=== PATIENT | male | born 1975 | race Caucasian/White ===

== ENCOUNTER 2017-02-11 09:32 | Emergency (ER) | payer OTHER ==
[~2017-02-11] VITALS: Ht 180.3 cm; Wt 98.5 kg
[2017-02-11 09:39] VITALS: TEMP 36.8; Ht 180.3 cm; Wt 98.5 kg
--- NOTE | 2017-02-11 09:56 | EMERGENCY ROOM VISIT NOTE ---
History Report prepared by [place]: Natalie Wang Under the Supervision of: Dr. Herb Maguire M.D. First contact with patient: 09:41 Chief Complaint: HYPERTENSION Stated Complaint: CHEST PAIN History of Present Illness The patient is a 41 year old male who presents to the Emergency Room with complaints of persistent hypertension that began prior to arrival. The patient states that he has a history of cauda equina syndrome. He additionally notes a history of hypertension and has been on both Amlodipine and Lisinopril for his hypertension. He notes that now he is currently on 20 mg of Lisinopril daily only, he is not currently taking Amlodipine. The patient states that recently he has been taking supplements that he has been buying on [employer] to increase his testosterone. The patient states that today while at work he became diaphoretic and short of breath and then felt like he was going to pass out. The patient states that his blood pressure was measured at 210/180 this morning. He denies any chest pain or headache. The patient states that he has had this happen to him in the past. He denies any nausea, vomiting, or diarrhea. Source of History: patient Onset: prior to arrival Position: other (global) Quality: other (hypertension) Timing: other (persistent) Associated Symptoms: + SOB, + diaphoresis, No chest pain, No diarrhea, No headache, No nausea, No vomiting Review of Systems See HPI for pertinent positives & negatives. A total of 10 systems reviewed and were otherwise negative. Past Medical & Surgical Medical Problems: (1) Hypertension Family History Diabetes mellitus FH: heart disease Hypertension Social History Smoking Status: Never Smoker Marital Status: Occupation Status: employed Current/Historical Medications Scheduled Amlodipine Besylate (Norvasc), 1 TAB PO DAILY Amphetamine-Dextroamphetamine 10MG (Adderall Xr 10MG), 10 MG PO BID Amphetamine-Dextroamphetamine 30MG (Adderall 30MG), 30 MG PO DAILY Bupropion (Wellbutrin Sr), 300 MG PO DAILY Ibuprofen ([facility]vs Ibuprofen Liquid Fill), 800 MG PO Q6H Lisinopril (Zestril), 20 MG PO DAILY Multivitamin (Multivitamin), 1 TAB PO DAILY [D-Aspartic Acid], 8 TAB PO DAILY Scheduled PRN Cyclobenzaprine Hcl (Flexeril), 5 MG PO TID PRN for Muscle Spasms Allergies Coded Allergies: Penicillins (Unverified Allergy, Unknown, ., 02/11/17) Physical Exam Vital Signs Date Time Temp Pulse Resp B/P Pulse Ox O2 Delivery O2 Flow Rate FiO2 02/11/17 12:29 71 18 169/106 96 Room Air 02/11/17 11:33 72 18 159/103 95 Room Air 02/11/17 10:43 84 16 208/118 02/11/17 10:13 84 02/11/17 10:12 85 18 181/118 02/11/17 09:39 36.8 100 18 191/105 97 Room Air Physical Exam GENERAL: Patient is in no acute distress. HEENT: No acute trauma, normocephalic atraumatic, mucous membranes moist, no nasal congestion, no scleral icterus. NECK: No stridor, no adenopathy, no meningismus, trachea is midline. LUNGS: Clear to auscultation bilaterally, no wheeze, no rhonchi, breath sounds equal. HEART: Without murmurs gallops or rubs, regular rate and rhythm. ABDOMEN: Soft, nontender, bowel sounds positive, no hernias, no peritonitis. EXTREMITIES: No cyanosis or edema, full range of motion of all the joints without pain or difficulty, no signs for acute trauma. NEUROLOGIC: No upper extremity deficits, lower extremity weakness noted consistent with cauda equine syndrome, awake and alert and Ox3. SKIN: No rash, no jaundice, no diaphoresis. Medical Decision & Procedures ER Provider Diagnostic Interpretation: X-ray results as stated below per interpretation by me and the radiologist: CHEST ONE VIEW PORTABLE CLINICAL HISTORY: Atypical chest pain and shortness of breath COMPARISON STUDY: No previous studies for comparison. FINDINGS: The cardiac and mediastinal contours are normal. There is no evidence of focal pulmonary consolidation. There is no evidence of failure. No pleural effusions are visualized.[ IMPRESSION: No active disease in the chest. Electronically signed by: Robbin Ortiz M.D. 02/11/2017 10:11 AM Dictated Date/Time: 02/11/2017 10:11 AM Laboratory Results 02/11/17 10:05 02/11/17 10:05 Test 02/11/17 10:05 Red Blood Count 5.28 M/uL (4.7-6.1) Mean Corpuscular Volume 88.1 fL (80-100) Mean Corpuscular Hemoglobin 30.3 pg (25-34) Mean Corpuscular Hemoglobin Concent 34.4 g/dl (32-36) RDW Standard Deviation 38.0 fL (36.4-46.3) RDW Coefficient of Variation 12.0 % (11.5-14.5) Mean Platelet Volume 8.8 fL (7.4-10.4) Anion Gap 8.0 mmol/L (3-11) Est Creatinine Clear Calc Drug Dose 117.4 ml/min Estimated GFR () 108.6 Estimated GFR (Non- 93.7 BUN/Creatinine Ratio 29.9 (10-20) Calcium Level 9.2 mg/dl (8.5-10.1) Magnesium Level 2.3 mg/dl (1.8-2.4) Total Bilirubin 1.0 mg/dl (0.2-1) Aspartate Amino Transf (AST/SGOT) 42 U/L (15-37) Alanine Aminotransferase (ALT/SGPT) 76 U/L (12-78) Alkaline Phosphatase 59 U/L (45-117) Troponin I < 0.015 ng/ml (0-0.045) Total Protein 7.1 gm/dl (6.4-8.2) Albumin 3.8 gm/dl (3.4-5.0) Globulin 3.3 gm/dl (2.5-4.0) Albumin/Globulin Ratio 1.2 (0.9-2) Thyroid Stimulating Hormone (TSH) 1.410 uIu/ml (0.300-4.500) Laboratory results reviewed by me. Medications Administered Medications (Trade) Dose Ordered Sig/Kelton Route Start Time Stop Time Status Last Admin Dose Admin Amlodipine Besylate (Norvasc Tab) 5 mg NOW ONCE PO 02/11/17 10:00 02/11/17 10:01 DC 02/11/17 10:13 5 MG Labetalol HCl (Normodyne IV) 20 mg NOW STAT IV 02/11/17 10:57 02/11/17 10:58 DC 02/11/17 11:15 20 MG ECG Indication: diaphoresis, SOB/dyspnea, other (hypertension) Rate (beats per minute): 88 Rhythm: normal sinus Findings: no acute ischemic change, no ectopy ED Course 0943: The patient was evaluated in room A2. A complete history and physical exam was performed. 1000: Ordered Norvasc Tab 5 mg PO. 1057: Ordered Labetalol HCl 20 mg IV. 1142: I reevaluated the patient and he is resting comfortably. 1237: I reevaluated the patient and he is asking to go home. I discussed all the exam findings with him and I discussed the treatment plan. He verbalized complete understanding and agreement. He is ready for discharge. Medical Decision The patient is a 41 year old male who presents to the ED with complaints of hypertension. Differential diagnoses considered include medication induced hypertension, stress or pain induced hypertension, electrolyte imbalance, anemia , cardiac ischemia, thyroid disorder. There is no leukocytosis or worrisome anemia. No significant electrolyte abnormality, kidney failure, hepatitis. The patient appears to be in a euthyroid state. EKG shows a normal sinus rhythm, no acute ischemia. Cardiac enzyme testing times one is not suggestive of acute cardiac injury. Chest x- ray shows no mediastinal widening, pneumonia or pneumothorax. The patient was given oral Norvasc, he received IV labetalol. His blood pressure is somewhat more reasonable. The patient states that he does not want to stay in the emergency room anymore. He thinks some of his high blood pressure is from anxiety and the fact that he is just in the ER. He is not homicidal or suicidal but he does feel stressed. He is going to follow with his doctor's office. He asked for information for a back surgeon, this was provided. He is being started on Norvasc in addition to his lisinopril. He has used Norvasc in the past with success. I've advised a good follow-up this upcoming week with his doctor's office. Impression Primary Impression: Hypertension Scribe Attestation The scribe's documentation has been prepared under my direction and personally reviewed by me in its entirety. I confirm that the note above accurately reflects all work, treatment, procedures, and medical decision making performed by me. Departure Information Dispostion Home / Self-Care Prescriptions Amlodipine Besylate (NORVASC) 5 Mg Tab 1 TAB PO DAILY for 30 Days, #30 TAB 5 Refills Prov: Herb Maguire M.D. 02/11/17 Referrals No Doctor, Assigned (PCP) Herbie Herrera, DO Forms HOME CARE DOCUMENTATION FORM, IMPORTANT VISIT INFORMATION Patient Instructions My [facility] Additional Instructions continue the lisinopril start norvasc daily see your doctor for a repeat blood pressure check next week call and set up appt with Dr. Herrera for your back lab testing today was all ok
[2017-02-11] MEDS ORDERED: AMLODIPINE BESYLATE 5 MG TAB PO ONE (10:00)
--- NOTE | 2017-02-11 10:13 | DIAGNOSTIC IMAGING REPORT ---
CHEST ONE VIEW PORTABLE CLINICAL HISTORY: Atypical chest pain and shortness of breath COMPARISON STUDY: No previous studies for comparison. FINDINGS: The cardiac and mediastinal contours are normal. There is no evidence of focal pulmonary consolidation. There is no evidence of failure. No pleural effusions are visualized.[ IMPRESSION: No active disease in the chest. Electronically signed by: Robbin Ortiz M.D. 02/11/2017 10:11 AM Dictated Date/Time: 02/11/2017 10:11 AM
[2017-02-11 10:14] LABS: HEMATOCRIT 46.5 % (42-52); MEAN CELL VOLUME 88.1 fL (80-100); MEAN CORPUSCULAR HEMOGLOBIN 30.3 pg (25-34); MEAN CORPUSCULAR HGB CONC 34.4 g/dl (32-36); MEAN PLATELET VOLUME 8.8 fL (7.4-10.4); PLATELET COUNT 255 K/uL (130-400); RED BLOOD COUNT 5.28 M/uL (4.7-6.1); WHITE BLOOD COUNT 8.68 K/uL (4.8-10.8)
[2017-02-11 10:30] LABS: CALCIUM 9.2 mg/dl (8.5-10.1)
[2017-02-11 10:34] LABS: ALT/SGPT 76 U/L (12-78); BLOOD UREA NITROGEN 30 mg/dl (7-18); BUN/CREATININE RATIO 29.9 (10-20); CARBON DIOXIDE 27 mmol/L (21-32); CHLORIDE 103 mmol/L (98-107); GLUCOSE 98 mg/dl (70-99); MAGNESIUM 2.3 mg/dl (1.8-2.4); POTASSIUM 3.5 mmol/L (3.5-5.1); SODIUM 138 mmol/L (136-145)
[2017-02-11 10:44] LABS: ALB/GLOB RATIO 1.2 (0.9-2); ALKALINE PHOSPHATASE 59 U/L (45-117); AST/SGOT 42 U/L (15-37)
[2017-02-11] MEDS ORDERED: CYCL5TAB PO (10:45)
[2017-02-11] MEDS ORDERED: AMPH30TA2 PO (10:45)
[2017-02-11] MEDS ORDERED: IBUP200C62 PO (10:45)
[2017-02-11] MEDS ORDERED: MULT-506 PO (10:45)
[2017-02-11] MEDS ORDERED: LISI-725 PO (10:45)
[2017-02-11] MEDS ORDERED: AMPH10CA3 PO (10:45)
[2017-02-11] MEDS ORDERED: BUPR-79 PO (10:45)
[2017-02-11] MEDS ORDERED: [UNRECOGNIZED DRUG - OTHER] PO (10:45)
[2017-02-11] MEDS ORDERED: LABETALOL HCL IV 5 MG/ML 20ML IV STA (10:57)
[2017-02-11 12:29] VITALS: BP 169/106; PULSE 71; O2SAT 96
[2017-02-11] MEDS ORDERED: AMLO5TAB2 PO (12:41)
== END 2017-02-11 12:50 | disposition home or self-care (01) ==
LOC: C.EDB 09:34 → C.EDA 12:50
DX: I10 Essential (primary) hypertension (principal); R06.02 Shortness of breath; R61 Generalized hyperhidrosis; Z83.3 Family history of diabetes mellitus; Z82.49 Family history of ischemic heart disease and other diseases of the circulatory system